=== PATIENT | female | born 1960 | race Caucasian/White ===

== ENCOUNTER → 2017-04-26 | Outpatient (CLI) | payer OTHER | LOC: FIMAGING 14:50 | PROVIDERS: ATTEND Obstetrics & Gynecology Gynecology | CPT/HCPCS: G0202 ==

== ENCOUNTER 2017-08-08 06:32 | Day surgery (SDC) | payer OTHER ==
[2017-08-08] MEDS ORDERED: LIDOCAINE 1% 2 ML INJ ID PRN (06:47)
[2017-08-08] MEDS ORDERED: LR 1,000 ML IV ONE (06:47)
[2017-08-08 07:11] VITALS: PULSE 66
[2017-08-08] MEDS ORDERED: SILVER NITRATE APPLICATOR 1 APPL TP ONE (07:37)
[2017-08-08] MEDS ORDERED: fentaNYL 100 MCG/2 ML INJ ONE (07:39)
[2017-08-08] MEDS ORDERED: PROPOFOL 200 MG/20 ML VIAL ONE (07:39)
[2017-08-08] MEDS ORDERED: LIDO/EPI 1% **for epidural** 30 ML SDV ONE (07:39)
[2017-08-08] MEDS ORDERED: LIDOCAINE 2% 5 ML SDV ONE (07:40)
[2017-08-08] MEDS ORDERED: DEXAMETHASONE 4 MG/ML VIAL ONE (07:40)
[2017-08-08] MEDS ORDERED: KETOROLAC 30 MG/1 ML SDV ONE (07:40)
[2017-08-08] MEDS ORDERED: ONDANSETRON 4 MG/2 ML VIAL ONE (07:40)
[2017-08-08] MEDS ORDERED: MIDAZOLAM 2 MG/2 ML VIAL IVP ONE (07:48)
--- NOTE | 2017-08-08 07:52 | PDANEPAE ---
ANE History of Present Illness hysteroscopy and fibroidectomy ANE Past Medical History - Cardiovascular History Hx Hypertension: No Hx Arrhythmias: No Hx Chest Pain: No Hx Coronary Artery / Peripheral Vascular Disease: No Hx CHF / Valvular Disease: No Hx Palpitations: No - Pulmonary History Hx COPD: No Hx Asthma/Reactive Airway Disease: Yes Hx Recent Upper Respiratory Infection: No Hx Oxygen in Use at Home: No Hx Sleep Apnea: No Sleep Apnea Screening Result - Last Documented: Negative Pulmonary History Comment: asthma - Neurologic History Hx Cerebrovascular Accident: No Hx Seizures: No Hx Dementia: No - Endocrine History Hx Diabetes: No Hypothyroid: No Hyperthyroid: No Obesity: no - Renal History Hx Renal Disorders: No - Liver History Hx Hepatic Disorders: No - Neurological & Psychiatric Hx Hx Neurological and Psychiatric Disorders: No - Cancer History Hx Cancer: No - Congenital Disorder History Hx Congenital Disorders: No - GI History GERD: no Hx Gastrointestinal Disorders: No - Other Health History Other Health History: none - Chronic Pain History Chronic Pain: No - Surgical History Prior Surgeries: none ANE Review of Systems Review of systems is: negative Review of Systems: - Exercise capacity METS (RN): 5 METS ANE Patient History - Allergies Allergies/Adverse Reactions: enviromental Allergy (Intermediate, Uncoded 07/25/17 10:33) Other-Enter Comments sensitive to antihistamines-"loopy" Allergy (Uncoded 01/16/16 07:24) - Home Medications Home medications: home medication list seen and reviewed Home Medications: Azithromycin 01/16/16 [Last Taken 06/09/16] Flonase Nasal [place] 01/16/16 [Last Taken 07/18/17] Mucinex 01/16/16 [Last Taken 06/09/16] Guaifenesin/Codeine Phosphate [Guaifenesin-Codeine Liquid] 07/25/17 [Last Taken 06/09/16] Polymyxin B Sulfate/Tmp [Polytrim Opht Drops (RX)] 07/25/17 [Last Taken ] - NPO status NPO Since - Liquids (Date): 08/07/17 NPO Since - Liquids (Time): 23:00 NPO Since - Solids (Date): 08/07/17 NPO Since - Solids (Time): 20:00 - Anes Hx Anes Hx: no prior problems - Smoking Hx Smoking Status: Never smoked - Family Anes Hx Family Hx Anesthesia Complications: none ANE Labs/Vital Signs - Vital Signs Blood Pressure: 115/65 Heart Rate: 66 Respiratory Rate: 16 O2 Sat (%): 97 Height: 165.1 cm Weight: 53.524 kg ANE Physical Exam - Airway Neck exam: FROM Mallampati Score: Class 2 Mouth exam: small mouth opening - Pulmonary Pulmonary: no respiratory distress - Cardiovascular Cardiovascular: regular rate and rhythym - ASA Status ASA Status: I ANE Anesthesia Plan Anesthesia Plan: GA w LMA
--- NOTE | 2017-08-08 08:24 | PDHPUP ---
History & Physical Update H&P update statement: This history and physical update is based on an assessment of the patient which was completed after admission or registration (within 24 hours), but prior to the surgery/procedure.
[2017-08-08] MEDS ORDERED: NALOXONE HCL 0.4 MG/ML INJ IVP PRN (08:29)
[2017-08-08] MEDS ORDERED: fentaNYL 100 MCG/2 ML INJ IVP PRN (08:29)
[2017-08-08] MEDS ORDERED: HYDROCODONE/APAP 5/325 TAB PO PRN (08:29)
[2017-08-08] MEDS ORDERED: ONDANSETRON 4 MG/2 ML VIAL IVP PRN (08:29)
[2017-08-08] MEDS ORDERED: OXYCODONE/APAP 5/325 TAB PO PRN (08:29)
[2017-08-08] MEDS ORDERED: ACETAMINOPHEN 500 MG TAB PO PRN (08:29)
[2017-08-08] MEDS ORDERED: HYDROmorphONE/DILAUDID 1 MG/ML INJ IVP PRN (08:29)
[2017-08-08] MEDS ORDERED: ALBUTEROL 3 ML DEYVIAL IH PRN (08:29)
[2017-08-08] MEDS ORDERED: PROMETHAZINE HCL 25 MG/ML INJ IVP PRN (08:29)
[2017-08-08] MEDS ORDERED: METOCLOPRAMIDE 10 MG/2 ML VIAL IVP PRN (08:29)
--- NOTE | 2017-08-08 08:31 | POSTANESTH ---
Post Anesthetic Evaluation Cardiovascular Status: Normal, Stable Respiratory Status: Normal, Stable Level of Consciousness/Mental Status: Can Participate in Eval Pain Control: Adequate, Prn Tx Ordered Nausea/Vomiting Control: Adequate, Prn Tx Ordered Complications Possibly Related to Anesthesia: None Noted
--- NOTE | 2017-08-08 09:35 | POSTOPPROG ---
Post Op Note Date of Operation: 08/08/17 Surgeon: Melony Schulz Anesthesiologist: Estrella Garnica Anesthesia: LMA Pre-op Diagnosis: DUB , endometrial polyps Post-op Diagnosis: endometrial fibroids Indication: heavy periods Procedure: H/S myomectomy Findings: fibroids Inf/Abcess present in the surg proc area at time of surgery?: No EBL: Minimal
--- NOTE | 2017-08-08 10:05 | GOP ---
[f rep st] OPERATIVE REPORT DATE OF OPERATION: SURGEON: Melony Schulz MD ANESTHESIA: General with LMA. ANESTHESIOLOGIST: Aman Reyes MD. PREOPERATIVE DIAGNOSIS: 1. Dysfunctional uterine bleeding. 2. Endometrial polyps. POSTOPERATIVE DIAGNOSIS: Endometrial fibroids. PROCEDURE PERFORMED: FINDINGS: There was a what was initially suspected to be a polyp, but after cutting into it for a fe w minutes, it was very dense and so a fibroid is suspected. Normal tubal ostia, normal endometrium o therwise, normal cervix. INDICATIONS: The patient is a 57-year-old who has had ongoing problematic menstrual cycles. Ultraso und recently showed quite large endometrial what appeared to be polyps 3.7 cm. She also has 2 subser osal fibroids that measure 6 cm and 5 cm, and she would like definitive treatment with minor surgery. DESCRIPTION OF PROCEDURE: With informed consent signed, patient taken to the operating room, placed under general anesthesia, placed in the low dorsal lithotomy position, prepped and draped in the usua l sterile fashion, and bladder previously emptied. Tenaculum placed on the cervix, which was extreme ly anteverted and difficult to find. Also it was somewhat difficult to dilate the cervix, but after some time, I was able to dilate up to 6 mm. The smaller hysteroscope placed into the uterine cavity and findings as noted above. The [employer] Tru[employer] rotary blade placed into the hysteroscope and resection of the entire fibroid done. There were about 10 minutes of resecting time. Once this was completed, the hemostasis was noted, the hysteroscope removed, and again hemostasis was noted. Net fluid deficit was 0, and the patient was placed in supine position, awakened in the operating sandy m, and returned to recovery room in stable condition. Tolerated the procedure well. COMPLICATIONS: None. /[id number]/MODL
[2017-08-08 10:50] VITALS: RESP 16
[2017-08-08 12:20] VITALS: BP 113/70; TEMP 98.6; O2SAT 94
== END 2017-08-08 11:20 | disposition home or self-care (01) ==
LOC: FSGY 06:32
PROVIDERS: ATTEND Obstetrics & Gynecology Gynecology
PROC: 0UDB8ZX Extraction of Endometrium, Via Natural or Artificial Opening Endoscopic, Diagnostic (ICD-10-PCS; principal; 2017-08-08 08:00)
DX: D25.9 Leiomyoma of uterus, unspecified (principal); N93.9 Abnormal uterine and vaginal bleeding, unspecified
CPT/HCPCS: 58561; C1782; J1100; J1885; J2250; J2405; J2704; J3010

== ENCOUNTER → 2017-09-06 | Outpatient (CLI) | payer OTHER | LOC: FIMAGING 09:39 | PROVIDERS: ATTEND Physician Assistant Medical | DX: Z13.820 Encounter for screening for osteoporosis (principal); M54.9 Dorsalgia, unspecified; Z82.62 Family history of osteoporosis ==

== ENCOUNTER → 2018-05-02 | Outpatient (CLI) | payer OTHER | LOC: FIMAGING 11:08 | PROVIDERS: ATTEND Obstetrics & Gynecology Gynecology | DX: Z12.31 Encounter for screening mammogram for malignant neoplasm of breast (principal); Z80.3 Family history of malignant neoplasm of breast ==